=== PATIENT | male | born 1965 | race Caucasian/White ===

== ENCOUNTER 2017-10-25 12:34 | Emergency (ER) | payer OTHER ==
[~2017-10-25] VITALS: Ht 167.6 cm; Wt 95.2 kg
[2017-10-25] MEDS ORDERED: ZYLOPRIM100 MG PO (12:51)
[2017-10-25] MEDS ORDERED: NORCO 5-325 TA1 EACH PO (13:46)
[2017-10-25] MEDS ORDERED: IBUPROFEN600 MG PO (13:46)
== END 2017-10-25 14:07 | disposition home or self-care (01) ==
LOC: ED 12:34
DX: M25.511 Pain in right shoulder (principal); M25.512 Pain in left shoulder; Z79.899 Other long term (current) drug therapy
CPT/HCPCS: 73030; 99284